=== PATIENT | male | born 1995 | race Caucasian/White ===

== ENCOUNTER → 2019-08-13 | Outpatient (CLI) | payer OTHER ==
[2019-08-13 15:24] LABS: HEMOGLOBIN 15.4 g/dL (13.5-18.0); MEAN CELL VOLUME 88 fl (78-100); MEAN CORPUSCULAR HEMOGLOBIN 30 pg (27-31); MEAN CORPUSCULAR HGB CONC 34 g/dL (33-37); MEAN PLATELET VOLUME 10.6 fl (7.4-10.4); PLATELET COUNT 271 K/mm3 (130-400); RED BLOOD COUNT 5.13 M/mm3 (4.20-5.60); RED CELL DISTRIBUTION WIDTH 12.1 % (11.5-14.5); WHITE BLOOD COUNT 7.3 K/mm3 (4.8-10.8)
[2019-08-13 15:32] LABS: ALBUMIN 4.5 g/dL (3.5-5.0)
[2019-08-13 15:33] LABS: CALCIUM 9.8 mg/dL (8.3-10.5); PROTHROMBIN TIME 9.9 SECONDS (9.0-12.0)
[2019-08-13 15:34] LABS: TOTAL PROTEIN 7.4 g/dL (6.4-8.3)
[2019-08-13 16:06] LABS: LYMPHOCYTE 40 % (20-51); MONOCYTE 8 % (3-10); NEUTROPHILS 34 % (42-75)
[2019-08-13 16:26] LABS: TOTAL BILIRUBIN 1.4 mg/dL (0.2-1.2)
[2019-08-15 15:06] LABS: ANTI-SMOOTH MUSCLE ANTIBODY Negative (Negative)
[2019-08-15 15:34] LABS: HEPATITIS B CORE AB TOTAL Negative (()); HEPATITIS B SURFACE ANTIGEN Negative (Negative)
[2019-08-18 14:06] LABS: ANA SCREEN with REFLEX Indeterminate (Negative)
[2019-08-27 14:22] LABS: HEPATITIS A AB (HAV) IGG INDEX A
== END ==
LOC: LAB 15:03
DX: E80.7 Disorder of bilirubin metabolism, unspecified (principal)

== ENCOUNTER → 2019-08-19 | Outpatient (CLI) | payer OTHER | LOC: RAD 08-15 09:00 | DX: E80.7 Disorder of bilirubin metabolism, unspecified (principal) ==